=== PATIENT | female | born 1970 | race Caucasian/White ===

== ENCOUNTER 2017-02-10 09:57 | Day surgery (SDC) | payer BC ==
[~2017-02-10] VITALS: Ht 162.6 cm; Wt 59.8 kg
[~2017-02-10 09:57] MED LIST: DOXYCYCLINE MO100 MG PO; Hydrodiuril,Oretic,E PO; MULTIPLE VITAM1 EAC4 PO; Motrin PO; NEURONTIN300 MG PO; PAXIL20 MG PO; PROzac PO; Percocet 5/325,Endoc PO; Theragran PO; Tylenol Extra Streng PO; [UNRECOGNIZED DRUG - OTHER] PO
[2017-02-10 10:22] VITALS: BP 103/62
[2017-02-10 18:11] VITALS: BP 112/67
[2017-02-10 20:01] VITALS: BP 105/69
[2017-02-11 00:36] VITALS: BP 95/59
[2017-02-11 04:04] VITALS: BP 98/54
[2017-02-11 07:10] LABS: EOSINOPHIL (%) 0.6 % (0-5); IMMATURE GRANULOCYTE (%) 0.2 % (0.0-0.7); INSTRUMENT ABS NEUTROPHIL CT 4.4 K/uL; LYMPHOCYTE COUNT 1.4 K/uL (1.0-2.8); MCH 31.9 PG (29.0-34.0); MCHC 33.4 G/DL (30.0-36.0); MCV 95.5 FL (83-99); MEAN PLAT.VOLUME 10.3 uM^3 (9.5-12.4); MONOCYTE COUNT 0.8 K/uL (0-0.8); NEUTROPHIL (%) 65.7 % (45-76); NEUTROPHIL COUNT 4.4 K/uL (1.8-6.4); PLATELET COUNT 178 K/uL (156-360); RBC DIS.WIDTH-CV 11.9 % (11.8-14.6); RBC DIS.WIDTH-SD 41.7 % (39-53); WHITE BLOOD COUNT 6.6 K/uL (4.1-10.2)
[2017-02-11 07:35] LABS: RED BLOOD COUNT 3.35 M/uL (3.80-5.20)
[2017-02-11 07:51] LABS: ANION GAP 2 MEQ/L (2-14); CHLORIDE 107 MEQ/L (99-109); GFR ESTIMATE (CALCULATED) > 59 mL/min/; GLUCOSE 92 mg/dL (70-99); POTASSIUM 4.2 MEQ/L (3.7-5.4); SAMPLE HEMOLYSIS CHECK 0; SAMPLE ICTERIC CHECK 0; SAMPLE LIPEMIA CHECK 0; SODIUM 142 MEQ/L (136-147); UREA NITROGEN (BUN) 8 mg/dL (9-23)
[2017-02-11 08:07] LABS: ADD MIUA? NO; BILIRUBIN NEGATIVE; BLOOD NEGATIVE; COLOR STRAW ((YELLOW)); GLUCOSE (STRIP) NEGATIVE; KETONES NEGATIVE; LEUKOCYTES NEGATIVE; NITRITE NEGATIVE; PROTEIN (STRIP) NEGATIVE; SPECIFIC GRAVITY 1.006 (1.000-1.030); UCUL ADDED? NO; UROBILINOGEN 0.2 MG/DL (0.2-1.0)
[2017-02-11 08:26] VITALS: BP 91/55
[2017-02-11 12:09] VITALS: BP 112/72
== END 2017-02-11 12:59 | disposition home or self-care (01) ==
LOC: SDC 09:57 → 2EAST 16:00 → 2SOUTH 16:00 → ENRESERV 16:53 → 2EAST 18:00
PROVIDERS: Obstetrics & Gynecology Gynecology
DX: N39.3 Stress incontinence (female) (male) (principal); I10 Essential (primary) hypertension; F41.8 Other specified anxiety disorders; K21.9 Gastro-esophageal reflux disease without esophagitis; J95.89 Other postprocedural complications and disorders of respiratory system, not elsewhere classified; R09.02 Hypoxemia; Z87.891 Personal history of nicotine dependence
CPT/HCPCS: 71010; 80048; 81003; 85025; 87086; 94640; 94640 76; 94799; 99202; G0378; J0690; J1100; J1170; J1940; J2250; J2405; J2710; J3010; J7120; J7509